=== PATIENT | female | born 1955 ===

== ENCOUNTER 2021-04-24 05:35 | Day surgery (SDC) | payer OTHER ==
[~2021-04-24 05:35] MED LIST: D3 + K2 DOTS 11 EACH PO; GLIPIZIDE XL10 MG PO; HYDROCHLOROTHIA25 MG PO; LIPITOR20 MG PO; MELOXICAM15 MG PO; METFORMIN HCL1000 M2 PO; NORVASC5 MG PO; TOPROL XL25 M1 PO
[2021-04-24] MEDS ORDERED: ULTRACET PO (09:26)
[2021-04-24] MEDS ORDERED: MACROBID 100 M100 MG PO (09:27)
== END 2021-04-24 12:50 | disposition home or self-care (01) ==
LOC: CIR.AMB 05:35
PROVIDERS: ATTEND Obstetrics & Gynecology Gynecology
DX: N81.11 Cystocele, midline (principal); Z20.822 Contact with and (suspected) exposure to COVID-19